=== PATIENT | female | born 1960 | race Two or more races ===

== ENCOUNTER 2017-01-22 19:22 | Emergency (ER) | payer OTHER ==
[~2017-01-22] VITALS: Ht 160 cm; Wt 63.5 kg
[2017-01-22 19:59] VITALS: BP 143/94
--- NOTE | 2017-01-22 19:59 | NUR ---
PT BIB DAUGHTER, AMUBALTORY TO ER BED 8 "VAGINAL PAIN RADIATING TO THE BACK X4 DAYS" "BURNING UPON URINATION" PT AOX3 RR EVEN AND UNLABORED. NO SOB NOTED. NAD NOTED. NO NVD AT THIS TIME. PT NOT DIAPHORETIC. PT WAITING FOR MD LARA.
--- NOTE | 2017-01-22 20:02 | NUR ---
URINE COLLECTED. 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 KAVITA AVALOS AT BEDSIDE FOR EVAL.
[2017-01-22 20:09] LABS: APPEARANCE,URINE Clear (CLEAR); BILIRUBIN,URINE Negative (NEGATIVE); BLOOD, URINE Moderate Ery/uL (NEGATIVE); COLOR,URINE Dark (YELLOW); KETONES,URINE Negative (NEGATIVE); LEUKOCYTE ESTERASE ,URINE Large (NEGATIVE); NITRITE, URINE Positive (NEGATIVE); PROTEIN,URINE 100 mg/dl (NEGATIVE)
[2017-01-22 20:12] LABS: UGLUCOSE 100 MG/DL mg/dL (NEGATIVE)
[2017-01-22 20:19] LABS: ADD URINE CULTURE YES; BACTERIA,URINE Many /HPF (None Seen); WBC,URINE TOO NUMEROUS TO COUN /HPF (0-3)
== END 2017-01-22 20:50 | disposition home or self-care (01) ==
LOC: ER 19:26
DX: N12 Tubulo-interstitial nephritis, not specified as acute or chronic (principal); N39.0 Urinary tract infection, site not specified; E78.00 Pure hypercholesterolemia, unspecified; I10 Essential (primary) hypertension; G89.29 Other chronic pain; M54.5 Low back pain
CPT/HCPCS: 81001; 99284; A4606; Z7610; 81000-TC; 87086-TC